=== PATIENT | female | born 1955 | race Caucasian/White ===

== ENCOUNTER 2017-02-13 14:14 | Emergency (ER) | payer OTHER ==
[~2017-02-13] VITALS: Ht 160 cm; Wt 79.5 kg
[~2017-02-13 14:14] MED LIST: ARIP20TA8 PO; ASPI-556 PO; DIPH25CA85 PO; ESCI5TAB PO; GLIM2TAB PO; HYDR-4172 PO; LISI-622 PO; LOVA20 PO; METF500T4 PO; PIOG15TA13 PO; RISP1 PO; SITA25 PO
[2017-02-13 14:37] LABS: GLUCOSE,POINT OF CARE 95 MG/DL (70-110)
[2017-02-13] MEDS ORDERED: DEXAMETHASONE SOD PHOS 4 MG/ML 5 ML VIAL IM ONE (15:45)
[2017-02-13 16:14] VITALS: BP 132/71
== END 2017-02-13 16:28 | disposition home or self-care (01) ==
LOC: EMS 14:15
DX: T78.40XA Allergy, unspecified, initial encounter (principal); I10 Essential (primary) hypertension; E78.00 Pure hypercholesterolemia, unspecified; E11.9 Type 2 diabetes mellitus without complications; F17.210 Nicotine dependence, cigarettes, uncomplicated; Z79.82 Long term (current) use of aspirin; Z88.6 Allergy status to analgesic agent; Z88.8 Allergy status to other drugs, medicaments and biological substances
CPT/HCPCS: 82962; 96372; 99283; J1100

== ENCOUNTER 2019-11-21 12:13 | Inpatient (IN) | payer OTHER ==
[~2019-11-21] VITALS: Ht 160 cm; Wt 62.7 kg
[~2019-11-21 12:13] MED LIST changes: +ARIP20TA PO; -ARIP20TA8 PO; +METF-444 PO; -METF500T4 PO; -PIOG15TA13 PO; +PIOG15TA6 PO
[2019-11-21] MEDS ORDERED: ESCI20TA PO (12:28)
[2019-11-21] MEDS ORDERED: GLIP2.5ER PO (12:28)
[2019-11-21] MEDS ORDERED: ACAR50TA2 PO (12:28)
[2019-11-21] MEDS ORDERED: LEVO50 PO (12:28)
[2019-11-21] MEDS ORDERED: 0.9% SODIUM CHLORIDE 10 ML SYRINGE IVP PRN ×2 (14:30→21:45)
[2019-11-21 15:11] LABS: BASOPHILS % (AUTO) 0.5 % (0.0-2.0); EOSINOPHILS % (AUTO) 0.1 % (1.0-6.0); HEMATOCRIT 40.5 % (36-46); HEMOGLOBIN 13.4 g/dL (12.0-16.0); LYMPHOCYTES # (AUTO) 1.2 K/uL (1.0-4.8); LYMPHOCYTES % (AUTO) 6.3 % (22.0-44.0); MEAN CORPUSCULAR HEMOGLOBIN 29.2 pg (26.0-34.0); MEAN CORPUSCULAR VOLUME 88 fL (80-100); MONOCYTES # (AUTO) 1.3 K/uL (0.1-1.0); MONOCYTES % (AUTO) 6.7 % (2.0-9.0); NEUTROPHILS # (AUTO) 16.5 K/uL (1.8-7.7); PLATELET COUNT (AUTO) 220 K/uL (150-450); RED BLOOD CELL COUNT(AUTO) 4.58 MIL/uL (4.00-5.20); RED CELL DISTRIBUTION WIDTH 14.3 % (11.5-14.5)
[2019-11-21 15:36] LABS: NEUTROPHILS % (AUTO) 86.4 % (40.0-70.0)
[2019-11-21 15:44] LABS: CALCIUM, TOTAL 8.8 mg/dL (8.8-10.5); CREATININE 1.04 mg/dL (0.60-1.30)
[2019-11-21] MEDS ORDERED: PIPERACILLIN/TAZO 3.375 GM/D5W 50 ML IV ONE (15:45)
[2019-11-21] MEDS ORDERED: VANCOMYCIN HCL 1 GM/D5% WATER 200 ML IV ONE (15:45)
[2019-11-21] MEDS ORDERED: TraMADol HCL 50 MG TABLET PO ONE (15:45)
[2019-11-21] MEDS ORDERED: SODIUM CHLORIDE 0.9% 1,000 ML IV ONE (15:45)
[2019-11-21 15:48] LABS: LACTIC ACID 0.8 mmol/L (0.4-2.0)
[2019-11-21 15:51] LABS: ALBUMIN 3.4 g/dL (3.4-5.0); BILIRUBIN,TOTAL 0.8 mg/dL (0.1-1.0); TOTAL PROTEIN, SERUM 7.3 g/dL (6.4-8.2)
[2019-11-21] MEDS ORDERED: SODIUM CHLORIDE 0.9% 100 ML ONE (17:21)
[2019-11-21] MEDS ORDERED: IOVERSOL 350 MG/ML 100 ML VIAL ONE (17:21)
[2019-11-21] MEDS ORDERED: ONDANSETRON HCL 4 MG/2 ML VIAL IVP PRN (21:45)
[2019-11-21] MEDS ORDERED: DEXTROSE 50%-WATER 25 GM/50 ML SYRINGE IVP PRN (21:45)
[2019-11-21] MEDS ORDERED: MORPHINE SULFATE 2 MG/ML SYRINGE IVP PRN ×2 (21:45→22:00)
[2019-11-21 22:15] VITALS: BP 119/63
[2019-11-21] MEDS: CeFAZolin 1 GM/DEXTROSE 50 ML IV SCH (23:26)
[2019-11-21] MEDS: SODIUM CHLORIDE 0.9% 1,000 ML IV SCH (23:27)
[2019-11-21] MEDS: DOCUSATE SODIUM 100 MG CAPSULE PO SCH (23:27)
[2019-11-22 00:40] VITALS: BP 107/52
[2019-11-22 04:10] VITALS: BP 110/56
[2019-11-22] MEDS: LEVOTHYROXINE SODIUM 50 MCG TABLET PO SCH (05:27)
[2019-11-22] MEDS: CeFAZolin 1 GM/DEXTROSE 50 ML IV SCH ×3 (05:27→22:28)
[2019-11-22] MEDS: INSULIN LISPRO 100 UNITS/ML SQ PRN ×3 (06:08→17:38)
[2019-11-22 06:16] LABS: GLUCOMETER DEV NAME(LOC) 6N.1; GLUCOSE,POINT OF CARE 146 MG/DL (70-110)
[2019-11-22 07:15] VITALS: BP 114/60
[2019-11-22 08:04] LABS: BASOPHILS % (AUTO) 0.3 % (0.0-2.0); EOSINOPHILS % (AUTO) 0.8 % (1.0-6.0); HEMATOCRIT 33.8 % (36-46); HEMOGLOBIN 11.3 g/dL (12.0-16.0); LYMPHOCYTES # (AUTO) 1.3 K/uL (1.0-4.8); LYMPHOCYTES % (AUTO) 9.9 % (22.0-44.0); MEAN CORPUSCULAR HEMOGLOBIN 29.8 pg (26.0-34.0); MEAN CORPUSCULAR HGB CONC 33.5 G/dL (31.0-37.0); MEAN CORPUSCULAR VOLUME 89 fL (80-100); MONOCYTES # (AUTO) 1.3 K/uL (0.1-1.0); MONOCYTES % (AUTO) 9.4 % (2.0-9.0); NEUTROPHILS # (AUTO) 10.6 K/uL (1.8-7.7); NEUTROPHILS % (AUTO) 79.6 % (40.0-70.0); PLATELET COUNT (AUTO) 196 K/uL (150-450); RED CELL DISTRIBUTION WIDTH 14.1 % (11.5-14.5)
[2019-11-22 08:21] LABS: CREATININE 0.96 mg/dL (0.60-1.30); POTASSIUM 3.2 mmol/L (3.5-5.1)
[2019-11-22 08:22] LABS: CALCIUM, TOTAL 8.2 mg/dL (8.8-10.5)
[2019-11-22] MEDS: ASPIRIN 81 MG EC TABLET PO SCH (09:00)
[2019-11-22] MEDS: ESCITALOPRAM OXALATE 20 MG TABLET PO SCH (09:00)
[2019-11-22] MEDS ORDERED: HydrALAZINE HCL 10 MG TABLET PO SCH (09:00)
[2019-11-22] MEDS: DOCUSATE SODIUM 100 MG CAPSULE PO SCH ×2 (09:00→21:07)
[2019-11-22] MEDS: FAMOTIDINE 10 MG/ML 2 ML VIAL IVP SCH (09:01)
[2019-11-22] MEDS: LOVASTATIN 20 MG TABLET PO SCH (09:01)
[2019-11-22] MEDS: SODIUM CHLORIDE 0.9% 1,000 ML IV SCH ×2 (09:02→17:33)
[2019-11-22 11:28] VITALS: BP 104/51
[2019-11-22] MEDS ORDERED: SODIUM CL IRRIG SOLN BOTTLE 250 ML IRRIG ONE (12:43)
[2019-11-22] MEDS ORDERED: POTASSIUM CHLORIDE 20 MEQ ER TABLET PO ONE ×3 (14:45→20:00)
[2019-11-22 15:10] VITALS: BP 130/66
[2019-11-22 19:33] VITALS: BP 127/66
[2019-11-22 20:17] LABS: GLUCOMETER DEV NAME(LOC) 6N.2; GLUCOSE,POINT OF CARE 149 MG/DL (70-110)
[2019-11-22 20:21] LABS: GLUCOMETER DEV NAME(LOC) 6N.1; GLUCOSE,POINT OF CARE 149 MG/DL (70-110)
[2019-11-22 20:21] LABS: GLUCOMETER DEV NAME(LOC) 6N.1; GLUCOSE,POINT OF CARE 154 MG/DL (70-110)
[2019-11-23 00:10] VITALS: BP 122/61
[2019-11-23 02:00] LABS: GLUCOMETER DEV NAME(LOC) 6N.1; GLUCOSE,POINT OF CARE 124 MG/DL (70-110)
[2019-11-23] MEDS: SODIUM CHLORIDE 0.9% 1,000 ML IV SCH (04:11)
[2019-11-23 04:52] VITALS: BP 127/71
[2019-11-23] MEDS: CeFAZolin 1 GM/DEXTROSE 50 ML IV SCH ×3 (05:24→23:29)
[2019-11-23] MEDS: LEVOTHYROXINE SODIUM 50 MCG TABLET PO SCH (05:32)
[2019-11-23 07:30] LABS: BASOPHILS % (AUTO) 0.3 % (0.0-2.0); EOSINOPHILS % (AUTO) 2.3 % (1.0-6.0); HEMATOCRIT 33.3 % (36-46); HEMOGLOBIN 11.3 g/dL (12.0-16.0); LYMPHOCYTES # (AUTO) 0.8 K/uL (1.0-4.8); LYMPHOCYTES % (AUTO) 8.6 % (22.0-44.0); MEAN CORPUSCULAR HEMOGLOBIN 30.4 pg (26.0-34.0); MEAN CORPUSCULAR HGB CONC 34.1 G/dL (31.0-37.0); MEAN CORPUSCULAR VOLUME 89 fL (80-100); MONOCYTES # (AUTO) 0.9 K/uL (0.1-1.0); MONOCYTES % (AUTO) 9.2 % (2.0-9.0); NEUTROPHILS # (AUTO) 7.6 K/uL (1.8-7.7); NEUTROPHILS % (AUTO) 79.6 % (40.0-70.0); PLATELET COUNT (AUTO) 200 K/uL (150-450); RED BLOOD CELL COUNT(AUTO) 3.73 MIL/uL (4.00-5.20); RED CELL DISTRIBUTION WIDTH 14.2 % (11.5-14.5)
[2019-11-23 07:42] LABS: ANION GAP 9 mmol/L (8-16); CALCIUM, TOTAL 8.2 mg/dL (8.8-10.5); CARBON DIOXIDE 23 mmol/L (22-29); CHLORIDE 104 mmol/L (98-107); CREATININE 0.77 mg/dL (0.60-1.30); GLOMERULAR FILTR. RATE CALC > 60 mL/min (>60); GLUCOSE,RANDOM 147 mg/dL (70-110); SODIUM SERUM 136 mmol/L (136-145); UREA NITROGEN, BLOOD 11 mg/dL (7-18)
[2019-11-23 07:51] VITALS: BP 126/59
[2019-11-23] MEDS: ASPIRIN 81 MG EC TABLET PO SCH (08:06)
[2019-11-23] MEDS: HydrALAZINE HCL 25 MG TABLET PO SCH (08:06)
[2019-11-23] MEDS: ESCITALOPRAM OXALATE 20 MG TABLET PO SCH (08:06)
[2019-11-23] MEDS: DOCUSATE SODIUM 100 MG CAPSULE PO SCH ×2 (08:07→21:06)
[2019-11-23] MEDS: FAMOTIDINE 10 MG/ML 2 ML VIAL IVP SCH (08:07)
[2019-11-23] MEDS: LOVASTATIN 20 MG TABLET PO SCH (08:10)
[2019-11-23 11:23] LABS: GLUCOMETER DEV NAME(LOC) 6N.1; GLUCOSE,POINT OF CARE 138 MG/DL (70-110)
[2019-11-23] MEDS: INSULIN LISPRO 100 UNITS/ML SQ PRN ×2 (11:40→21:07)
[2019-11-23 11:46] VITALS: BP 129/91
[2019-11-23 15:31] VITALS: BP 121/70
[2019-11-23] MEDS ORDERED: HYDR25TA84 PO (16:39)
[2019-11-23] MEDS ORDERED: SITA100 PO (16:39)
[2019-11-23 17:36] LABS: GLUCOMETER DEV NAME(LOC) 6N.2; GLUCOSE,POINT OF CARE 203 MG/DL (70-110)
[2019-11-23 17:36] LABS: GLUCOMETER DEV NAME(LOC) 6N.2; GLUCOSE,POINT OF CARE 106 MG/DL (70-110)
[2019-11-23 20:10] VITALS: BP 129/65
[2019-11-23 20:28] LABS: GLUCOMETER DEV NAME(LOC) 6N.2; GLUCOSE,POINT OF CARE 290 MG/DL (70-110)
[2019-11-24] VITALS (7 sets, daily range): BP systolic 115–132; BP diastolic 53–74
[2019-11-24] MEDS: LEVOTHYROXINE SODIUM 50 MCG TABLET PO SCH (05:44)
[2019-11-24] MEDS: INSULIN LISPRO 100 UNITS/ML SQ PRN ×4 (05:46→21:49)
[2019-11-24] MEDS: CeFAZolin 1 GM/DEXTROSE 50 ML IV SCH ×3 (05:58→21:46)
[2019-11-24 06:03] LABS: GLUCOMETER DEV NAME(LOC) 6N.2; GLUCOSE,POINT OF CARE 146 MG/DL (70-110)
[2019-11-24 07:09] LABS: BASOPHILS % (AUTO) 0.4 % (0.0-2.0); HEMATOCRIT 36.6 % (36-46); HEMOGLOBIN 12.3 g/dL (12.0-16.0); LYMPHOCYTES # (AUTO) 1.3 K/uL (1.0-4.8); LYMPHOCYTES % (AUTO) 12.3 % (22.0-44.0); MEAN CORPUSCULAR HEMOGLOBIN 29.8 pg (26.0-34.0); MEAN CORPUSCULAR HGB CONC 33.7 G/dL (31.0-37.0); MEAN CORPUSCULAR VOLUME 89 fL (80-100); MONOCYTES # (AUTO) 0.9 K/uL (0.1-1.0); MONOCYTES % (AUTO) 8.4 % (2.0-9.0); NEUTROPHILS # (AUTO) 7.9 K/uL (1.8-7.7); NEUTROPHILS % (AUTO) 76.9 % (40.0-70.0); PLATELET COUNT (AUTO) 257 K/uL (150-450); RED BLOOD CELL COUNT(AUTO) 4.13 MIL/uL (4.00-5.20); RED CELL DISTRIBUTION WIDTH 14.1 % (11.5-14.5)
[2019-11-24 07:18] LABS: CALCIUM, TOTAL 9.5 mg/dL (8.8-10.5); CREATININE 0.99 mg/dL (0.60-1.30); POTASSIUM 3.6 mmol/L (3.5-5.1)
[2019-11-24] MEDS: FAMOTIDINE 10 MG/ML 2 ML VIAL IVP SCH (08:18)
[2019-11-24] MEDS: ESCITALOPRAM OXALATE 20 MG TABLET PO SCH (08:18)
[2019-11-24] MEDS: DOCUSATE SODIUM 100 MG CAPSULE PO SCH ×2 (08:18→21:46)
[2019-11-24] MEDS: ASPIRIN 81 MG EC TABLET PO SCH (08:20)
[2019-11-24] MEDS: HydrALAZINE HCL 25 MG TABLET PO SCH (09:00)
[2019-11-24] MEDS ORDERED: CLIN150C10 PO (14:30)
[2019-11-24] MEDS ORDERED: LOVASTATIN 20 MG TABLET PO SCH (18:00)
[2019-11-24] MEDS ORDERED: PNEUMOCOCCAL VACCINE POLYVALENT 0.5 ML VIAL [PPSV23] IM ONE (19:00)
[2019-11-24 20:26] LABS: GLUCOMETER DEV NAME(LOC) 6N.2; GLUCOSE,POINT OF CARE 149 MG/DL (70-110)
[2019-11-24 22:23] LABS: GLUCOMETER DEV NAME(LOC) 6N.1; GLUCOSE,POINT OF CARE 167 MG/DL (70-110)
[2019-11-25 04:30] VITALS: BP 126/55
[2019-11-25 05:08] LABS: GLUCOMETER DEV NAME(LOC) 6N.2; GLUCOSE,POINT OF CARE 147 MG/DL (70-110)
[2019-11-25] MEDS: LEVOTHYROXINE SODIUM 50 MCG TABLET PO SCH (06:16)
[2019-11-25] MEDS: CeFAZolin 1 GM/DEXTROSE 50 ML IV SCH ×2 (06:16→13:31)
[2019-11-25] MEDS: INSULIN LISPRO 100 UNITS/ML SQ PRN ×2 (06:28→11:47)
[2019-11-25 07:06] LABS: GLUCOMETER DEV NAME(LOC) 6N.2; GLUCOSE,POINT OF CARE 141 MG/DL (70-110)
[2019-11-25] MEDS: DOCUSATE SODIUM 100 MG CAPSULE PO SCH (07:59)
[2019-11-25] MEDS: ASPIRIN 81 MG EC TABLET PO SCH (07:59)
[2019-11-25] MEDS: FAMOTIDINE 10 MG/ML 2 ML VIAL IVP SCH (07:59)
[2019-11-25] MEDS: HydrALAZINE HCL 25 MG TABLET PO SCH (07:59)
[2019-11-25] MEDS: ESCITALOPRAM OXALATE 20 MG TABLET PO SCH (07:59)
[2019-11-25 08:06] VITALS: BP 124/67
[2019-11-25 08:20] LABS: BASOPHILS % (AUTO) 0.4 % (0.0-2.0); EOSINOPHILS % (AUTO) 3.4 % (1.0-6.0); HEMATOCRIT 34.7 % (36-46); HEMOGLOBIN 11.6 g/dL (12.0-16.0); LYMPHOCYTES # (AUTO) 1.7 K/uL (1.0-4.8); LYMPHOCYTES % (AUTO) 18.3 % (22.0-44.0); MEAN CORPUSCULAR HEMOGLOBIN 29.8 pg (26.0-34.0); MEAN CORPUSCULAR HGB CONC 33.5 G/dL (31.0-37.0); MEAN CORPUSCULAR VOLUME 89 fL (80-100); MONOCYTES # (AUTO) 1.1 K/uL (0.1-1.0); MONOCYTES % (AUTO) 11.7 % (2.0-9.0); NEUTROPHILS # (AUTO) 6.1 K/uL (1.8-7.7); NEUTROPHILS % (AUTO) 66.2 % (40.0-70.0); PLATELET COUNT (AUTO) 257 K/uL (150-450); RED CELL DISTRIBUTION WIDTH 13.9 % (11.5-14.5)
[2019-11-25 08:26] LABS: CALCIUM, TOTAL 9.1 mg/dL (8.8-10.5); CREATININE 0.97 mg/dL (0.60-1.30); POTASSIUM 3.8 mmol/L (3.5-5.1)
[2019-11-25 11:31] VITALS: BP 119/58
[2019-11-25 12:16] LABS: GLUCOMETER DEV NAME(LOC) 6N.2; GLUCOSE,POINT OF CARE 169 MG/DL (70-110)
[2019-11-25 15:12] VITALS: BP 124/60
== END 2019-11-25 16:00 | disposition home or self-care (01) | DRG 720 ==
LOC: EMS 12:23 → 6N 20:08
PROVIDERS: ADMIT Internal Medicine; ATTEND Internal Medicine
DX: A41.9 Sepsis, unspecified organism (principal); E87.1 Hypo-osmolality and hyponatremia; L03.115 Cellulitis of right lower limb; I10 Essential (primary) hypertension; E11.9 Type 2 diabetes mellitus without complications; F31.9 Bipolar disorder, unspecified; E78.00 Pure hypercholesterolemia, unspecified; F20.9 Schizophrenia, unspecified; B95.62 Methicillin resistant Staphylococcus aureus infection as the cause of diseases classified elsewhere; E89.0 Postprocedural hypothyroidism; Z87.891 Personal history of nicotine dependence; Z88.8 Allergy status to other drugs, medicaments and biological substances; Z88.6 Allergy status to analgesic agent; Z79.82 Long term (current) use of aspirin; Z79.899 Other long term (current) drug therapy; Z98.890 Other specified postprocedural states
CPT/HCPCS: 73701; 83605; 87040; 87070; 87205; 93970; J0690; J2543; J3370; J3490; J7030; J7050

== ENCOUNTER 2024-05-29 01:24 | Inpatient (IN) | payer MEDICARE, MEDICAID ==
[~2024-05-29] VITALS: Ht 157.5 cm; Wt 49.5 kg
[~2024-05-29 01:24] MED LIST changes: +ACAR50TA2 PO; -ARIP20TA PO; +CLIN-116 PO; -DIPH25CA85 PO; +ESCI20TA87 PO; -ESCI5TAB PO; -GLIM2TAB PO; +GLIP2.5T28 PO; -HYDR-4172 PO; +HYDR25TA84 PO; +LEVO50 PO; -LISI-622 PO; -LOVA20 PO; +LOVA20TA73 PO; -PIOG15TA6 PO; -RISP1 PO; +SITA100 PO; -SITA25 PO
[2024-05-29 01:51] LABS: GLUCOMETER DEV NAME(LOC) ERT.5; GLUCOSE,POINT OF CARE 137 MG/DL (70-110)
[2024-05-29] MEDS: SODIUM CHLORIDE 0.9% 1,000 ML IV ONE ×2 (02:00→06:09)
[2024-05-29 02:07] LABS: BASOPHILS % (AUTO) 0.2 % (0.0-2.0); EOSINOPHILS % (AUTO) 0.3 % (1.0-6.0); HEMATOCRIT 40.3 % (36-46); HEMOGLOBIN 13.1 g/dL (12.0-16.0); LYMPHOCYTES # (AUTO) 0.4 K/uL (1.0-4.8); LYMPHOCYTES % (AUTO) 5.2 % (22.0-44.0); MEAN CORPUSCULAR HEMOGLOBIN 29.6 pg (26.0-34.0); MEAN CORPUSCULAR HGB CONC 32.5 G/dL (31.0-37.0); MEAN CORPUSCULAR VOLUME 91 fL (80-100); MONOCYTES # (AUTO) 1.2 K/uL (0.1-1.0); MONOCYTES % (AUTO) 15.2 % (2.0-9.0); NEUTROPHILS # (AUTO) 6.2 K/uL (1.8-7.7); NEUTROPHILS % (AUTO) 79.1 % (40.0-70.0); PLATELET COUNT (AUTO) 284 K/uL (150-450); RED BLOOD CELL COUNT(AUTO) 4.43 MIL/uL (4.00-5.20); RED CELL DISTRIBUTION WIDTH 14.9 % (11.5-14.5); WHITE BLOOD COUNT (AUTO) 7.8 K/uL (4.5-11.0)
[2024-05-29 02:09] LABS: COVID AG,FIA SOURCE NASAL SWAB
[2024-05-29 02:17] LABS: ANION GAP 6 mmol/L (8-16); CALCIUM, TOTAL 8.6 mg/dL (8.8-10.5); CARBON DIOXIDE 29 mmol/L (22-29); CHLORIDE 102 mmol/L (98-107); CREATININE 1.09 mg/dL (0.60-1.30); GLOMERULAR FILTR. RATE CALC 50 mL/min (>60); GLUCOSE,RANDOM 160 mg/dL (70-110); POTASSIUM 3.6 mmol/L (3.5-5.1); SODIUM SERUM 137 mmol/L (136-145); UREA NITROGEN, BLOOD 23 mg/dL (7-18)
[2024-05-29 02:19] LABS: INFLUENZA TYPE A NEGATIVE FOR TYPE A (NEGATIVE); INFLUENZA TYPE B POSITIVE FOR TYPE B (NEGATIVE)
[2024-05-29 02:24] LABS: TROPONIN I-HIGH SENSITIVITY 6 ng/L (<51)
[2024-05-29 02:25] LABS: LACTIC ACID 1.3 mmol/L (0.4-2.0)
[2024-05-29 02:26] LABS: ALCOHOL, BLOOD (SERUM) < 3 mg/dL (0-10)
[2024-05-29 02:29] LABS: SARS-COV2 (COVID) ANTIGEN,FIA Positive (Negative)
[2024-05-29 02:33] LABS: AMMONIA < 10 umol/L (11-32)
[2024-05-29 02:41] LABS: ALANINE AMINOTRANSFERASE 12 U/L (12-78); ALBUMIN 3.3 g/dL (3.4-5.0); ALKALINE PHOSPHATASE 86 U/L (46-116); ASPARTATE AMINOTRANSFERASE 21 U/L (15-37); BILIRUBIN,TOTAL 0.4 mg/dL (0.1-1.0); CREATINE KINASE, TOTAL ONLY 139 U/L (26-192); PHOSPHORUS 4.2 mg/dL (2.5-4.9); TOTAL PROTEIN, SERUM 6.9 g/dL (6.4-8.2)
[2024-05-29 03:13] LABS: B-TYPE NATRIURETIC PEPTIDE 45 pg/mL (0-100)
[2024-05-29] MEDS: MetFORMIN HCL 500 MG TABLET PO SCH (08:12)
[2024-05-29] MEDS: LEVOTHYROXINE SODIUM 50 MCG TABLET PO SCH (08:13)
[2024-05-29] MEDS: GlipiZIDE ER 2.5 MG ER TABLET PO SCH (08:13)
[2024-05-29] MEDS: LOVASTATIN 20 MG TABLET PO SCH (08:16)
[2024-05-29] MEDS: SitaGLIPtin PHOSPHATE 100 MG TABLET PO SCH (08:18)
[2024-05-29] MEDS: ESCITALOPRAM OXALATE 20 MG TABLET PO SCH (08:18)
[2024-05-29 08:58] LABS: APPEARANCE,URINE CLEAR (CLEAR); BILIRUBIN,URINE NEGATIVE (NEGATIVE); COLOR,URINE YELLOW (YELLOW); GLUCOSE, URINE (UA) >=1000 mg/dL (NEGATIVE); LEUKOCYTE ESTERASE ,URINE NEGATIVE (NEGATIVE); NITRATE,URINE POSITIVE (NEGATIVE); OCCULT BLOOD,URINE MODERATE (NEGATIVE); PH,URINE 5.5 (5.0-8.0); PH,URINE DRUG SCREEN 5.5 (5.0-8.0); PROTEIN,URINE TRACE mg/dL (NEGATIVE); SPECIFIC GRAVITIY, URINE 1.019 (1.003-1.030); UROBILINOGEN,URINE <=1.0 mg/dL (<=1.0)
[2024-05-29 09:01] LABS: BACTERIA,URINE Many /HPF (None Seen); RBC,URINE None Seen /HPF (0-2); SQUAMOUS EPITHELIAL CELL,UR Few /LPF (None Seen); WBC,URINE 0-2 /HPF (0-5)
[2024-05-29 09:06] LABS: ALCOHOL, URINE DRUG SCREEN NEGATIVE (NEGATIVE); AMPHET/METH SCREEN,URINE NEGATIVE (NEGATIVE); BARBITURATE SCREEN, URINE NEGATIVE (NEGATIVE); BENZODIAZEPINES SCREEN,URINE NEGATIVE (NEGATIVE); CANNABINOID SCREEN,URINE NEGATIVE (NEGATIVE); COCAINE SCREEN,URINE NEGATIVE (NEGATIVE); METHADONE SCREEN, URINE NEGATIVE (NEGATIVE); OPIATE SCREEN,URINE NEGATIVE (NEGATIVE); PHENCYCLIDINE SCREEN,URINE NEGATIVE (NEGATIVE)
[2024-05-29 09:15] VITALS: BP 136/68; PULSE 64; RESP 18; TEMP 98.4
[2024-05-29] MEDS: ASPIRIN 81 MG DR TABLET PO SCH (09:50)
[2024-05-29] MEDS: HydrALAZINE HCL 25 MG TABLET PO SCH (09:50)
[2024-05-29] MEDS: OSELTAMIVIR PHOSPHATE 75 MG CAPSULE PO SCH (10:32)
[2024-05-29 12:47] VITALS: BP 125/60; PULSE 63; RESP 18; TEMP 99.1
[2024-05-29] MEDS: CefTRIAXone 1 GM/DEXTROSE 50 ML IV SCH (15:17)
[2024-05-29 16:47] VITALS: BP 142/77; PULSE 66; RESP 18; TEMP 98.4
[2024-05-29] MEDS ORDERED: HALO5TAB2 PO (16:51)
[2024-05-29] MEDS: HALOPERIDOL 5 MG TABLET PO SCH (21:10)
[2024-05-29 22:30] LABS: GLUCOMETER DEV NAME(LOC) 5N.1D; GLUCOSE,POINT OF CARE 93 MG/DL (70-110)
[2024-05-29] MEDS: TraMADol HCL 50 MG TABLET PO PRN (23:09)
[2024-05-29 23:14] VITALS: BP 153/72; PULSE 66; RESP 20; TEMP 98.5
[2024-05-30 03:29] VITALS: BP 141/65; PULSE 59; RESP 17; TEMP 98.6
[2024-05-30 07:40] LABS: GLUCOMETER DEV NAME(LOC) 5S.2D; GLUCOSE,POINT OF CARE 138 MG/DL (70-110)
[2024-05-30 20:55] VITALS: BP 138/81; PULSE 79; RESP 18; TEMP 97.9
[2024-05-30 23:15] VITALS: BP 133/64; PULSE 57; RESP 18; TEMP 98
[2024-05-31 03:07] VITALS: BP 134/75; PULSE 69; RESP 16; TEMP 97.9
[2024-05-31 05:56] LABS: GLUCOMETER DEV NAME(LOC) 5S.1B; GLUCOSE,POINT OF CARE 84 MG/DL (70-110)
[2024-05-31 08:26] LABS: GLUCOMETER DEV NAME(LOC) 5N.1D; GLUCOSE,POINT OF CARE 99 MG/DL (70-110)
[2024-05-31 08:26] LABS: GLUCOMETER DEV NAME(LOC) 5N.1D; GLUCOSE,POINT OF CARE 179 MG/DL (70-110)
[2024-05-31 09:12] VITALS: BP 135/71; PULSE 97; RESP 18; TEMP 98.1
== END 2024-05-31 16:00 | disposition home or self-care (01) | DRG 137 ==
LOC: EMS 01:27 → EDH 06:09 → 5S 09:08
PROVIDERS: ADMIT Internal Medicine; ATTEND Internal Medicine
DX: U07.1 COVID-19 (principal); J12.82 Pneumonia due to coronavirus disease 2019; J11.00 Influenza due to unidentified influenza virus with unspecified type of pneumonia; G93.41 Metabolic encephalopathy; I10 Essential (primary) hypertension; E11.9 Type 2 diabetes mellitus without complications; E78.5 Hyperlipidemia, unspecified; N39.0 Urinary tract infection, site not specified; F25.1 Schizoaffective disorder, depressive type; E89.0 Postprocedural hypothyroidism; E78.00 Pure hypercholesterolemia, unspecified; Z87.891 Personal history of nicotine dependence; Z88.8 Allergy status to other drugs, medicaments and biological substances; Z88.6 Allergy status to analgesic agent; Z79.82 Long term (current) use of aspirin; Z79.84 Long term (current) use of oral hypoglycemic drugs; Z79.899 Other long term (current) drug therapy
CPT/HCPCS: 70450; 70486; 71045; 72125; 80053; 80307; 81001; 82140; 82550; 82962; 83605; 83735; 83880; 84100; 84484; 85025; 87040; 87086; 87186; 87804; 93005; 99285; G0480; J0696; J7030; 36415-L1; 36415-TC

== ENCOUNTER 2024-07-14 15:42 | Emergency (ER) | payer MEDICARE, MEDICAID ==
[~2024-07-14] VITALS: Ht 157.5 cm; Wt 48.0 kg
[~2024-07-14 15:42] MED LIST changes: -ACAR50TA2 PO; -CLIN-116 PO; -GLIP2.5T28 PO; +HALO5TAB2 PO
[2024-07-14 15:49] VITALS: BP 156/79; PULSE 77; RESP 20; TEMP 98.3; O2SAT 99
[2024-07-14] MEDS: OXYMETAZOLINE HCL 0.05% 15 ML NASAL SPRAY NASAL ONE (19:11)
== END 2024-07-14 19:13 | disposition home or self-care (01) ==
LOC: EMS 15:42
DX: R04.0 Epistaxis (principal); E11.9 Type 2 diabetes mellitus without complications; I10 Essential (primary) hypertension; F17.210 Nicotine dependence, cigarettes, uncomplicated; Z88.6 Allergy status to analgesic agent; Z91.048 Other nonmedicinal substance allergy status
CPT/HCPCS: 99282; Z7502; Z7610

== ENCOUNTER 2025-03-21 17:38 | Emergency (ER) | payer MEDICARE, MEDICAID ==
[~2025-03-21] VITALS: Ht 160 cm; Wt 60.0 kg
[2025-03-21 17:40] VITALS: TEMP 98.8
[2025-03-21 18:30] VITALS: BP 124/78; PULSE 86; RESP 16; O2SAT 98
[2025-03-21] MEDS ORDERED: ASPI-1444 PO (18:31)
[2025-03-21] MEDS ORDERED: GLIP-300 PO (18:31)
[2025-03-21] MEDS ORDERED: ACAR25TA2 PO (18:31)
[2025-03-21] MEDS ORDERED: LORA10TA7 PO (18:31)
[2025-03-21] MEDS ORDERED: ALLO100T PO (18:31)
[2025-03-21] MEDS ORDERED: [UNRECOGNIZED DRUG - CODE] PO (18:31)
[2025-03-21] MEDS ORDERED: LEVO75 PO (18:31)
[2025-03-21] MEDS ORDERED: LOVA10TA2 PO (18:31)
[2025-03-21] MEDS ORDERED: DIPH-1243 PO (18:31)
[2025-03-21] MEDS ORDERED: NETA2.5D3 OU (18:31)
[2025-03-21] MEDS ORDERED: TRIA15CR49 TP (18:31)
[2025-03-21] MEDS ORDERED: DEUT24TA PO (18:31)
[2025-03-21] MEDS ORDERED: METF-446 PO (18:31)
[2025-03-21] MEDS ORDERED: BRIN10DR3 OU (18:31)
[2025-03-21] MEDS ORDERED: EMPA10TA3 PO (18:31)
[2025-03-21] MEDS ORDERED: LOSA-381 PO (18:31)
[2025-03-21] MEDS ORDERED: BRIM5DRO28 OU (18:31)
[2025-03-21] MEDS: BACITRACIN 0.9 GM PACKET OINTMENT TP ONE (18:45)
[2025-03-21] MEDS: PERTUSS(ACELL),DIPH,TET/PF 0.5 ML SYRINGE [ADULT] IM. ONE (18:46)
== END 2025-03-21 22:44 | disposition home or self-care (01) ==
LOC: EMS 17:39
DX: S01.01XA Laceration without foreign body of scalp, initial encounter (principal); I10 Essential (primary) hypertension; E11.9 Type 2 diabetes mellitus without complications; E78.00 Pure hypercholesterolemia, unspecified; E03.9 Hypothyroidism, unspecified; F20.9 Schizophrenia, unspecified; R41.82 Altered mental status, unspecified; F17.210 Nicotine dependence, cigarettes, uncomplicated; Z79.82 Long term (current) use of aspirin; Z79.84 Long term (current) use of oral hypoglycemic drugs; Z88.6 Allergy status to analgesic agent; Z90.89 Acquired absence of other organs; Z79.899 Other long term (current) drug therapy; W22.8XXA Striking against or struck by other objects, initial encounter; Y93.89 Activity, other specified; Y92.89 Other specified places as the place of occurrence of the external cause; Y99.8 Other external cause status
CPT/HCPCS: 12002; 70450; 72125; 90471; 90715; 99285